=== PATIENT | male | born 1950 | race Two or more races ===

== ENCOUNTER 2020-07-15 21:14 | Inpatient (IN) | payer MEDICAID, OTHER ==
[~2020-07-15] VITALS: Ht 167.6 cm; Wt 79.5 kg
[2020-07-15] MEDS ORDERED: DOXYCYCLINE 100MG TABLET ONE (21:59)
[2020-07-15] MEDS ORDERED: DOXYCYCLINE 100MG TABLET PO ONE (22:00)
[2020-07-15] MEDS ORDERED: CEFTRIAXONE PMX 1GM/50ML 50 ML IVPB ONE (22:00)
[2020-07-15] MEDS ORDERED: DEXAMETHASONE 4 MG/ML, 1ML IVPush ONE (22:00)
[2020-07-15 22:52] LABS: BASOPHILS % (AUTO) 0 % (0-1); EOSINOPHILS % (AUTO) 0 % (1-7); LYMPHOCYTES % (AUTO) 3 % (22-44); MEAN CORPUSCULAR HEMOGLOBIN 30.6 pg (27.5-34.5); MEAN CORPUSCULAR HGB CONC 34.6 g/dL (33.2-36.2); MEAN PLATELET VOLUME 7.6 fL (7.4-10.4); MONOCYTES % (AUTO) 2 % (2-9); NEUTROPHILS % (AUTO) 95 % (42-75); PLATELET COUNT 549 x10^3/uL (130-400); RED BLOOD COUNT 4.12 x10^6/uL (4.38-5.82); RED CELL DISTRIBUTION WIDTH 13.1 % (9.4-14.8)
[2020-07-15 22:55] LABS: MD NO
[2020-07-15 23:03] LABS: ALANINE AMINOTRANSFERASE 38 U/L (12-78); ALBUMIN 2.6 g/dL (3.4-5.0); ANION GAP 11 mmol/L (5-15); CALCIUM 8.2 mg/dL (8.5-10.1); CHLORIDE 103 mmol/L (98-107)
[2020-07-15 23:11] LABS: ALKALINE PHOSPHATASE 49 U/L (45-117); BILIRUBIN,TOTAL 0.5 mg/dL (0.2-1.0); CREATININE 2.21 mg/dL (0.7-1.3); TOTAL PROTEIN 7.6 g/dL (6.4-8.2)
[2020-07-15 23:14] LABS: D-DIMER (DIC) 2.16 ug/mlFEU (0.00-0.52); PROTIME 10.5 Seconds (9.6-11.5)
[2020-07-15 23:15] LABS: C-REACTIVE PROTEIN, QUANT > 19.00 mg/dL (0.02-0.49)
[2020-07-15] MEDS ORDERED: SODIUM CHLORIDE 0.9% 1,000 ML IV ONE (23:30)
[2020-07-15] MEDS ORDERED: GEMF600T8 PO (23:30)
[2020-07-15] MEDS ORDERED: TAMS-11 PO (23:33)
[2020-07-15] MEDS ORDERED: MONT4GRA2 PO (23:33)
[2020-07-15] MEDS ORDERED: LISI-170 PO (23:33)
[2020-07-15] MEDS ORDERED: HYDR12.517 PO (23:33)
[2020-07-15] MEDS ORDERED: OMEP-110 PO (23:33)
[2020-07-15] MEDS ORDERED: LEVA15HF4 INH (23:33)
[2020-07-15] MEDS ORDERED: METF500T17 PO (23:33)
[2020-07-15] MEDS ORDERED: POLY17PO5 PO (23:33)
[2020-07-16] MEDS ORDERED: DOCUSATE 100 MG CAPSULE PO PRN (00:30)
[2020-07-16] MEDS: ENOXAPARIN 30 MG/0.3 ML SQ SCH ×3 (00:30→23:58)
[2020-07-16] MEDS ORDERED: ONDANSETRON ODT 4 MG PO PRN (00:30)
[2020-07-16] MEDS ORDERED: BISACODYL 10 MG SUPP PR PRN (00:30)
[2020-07-16] MEDS ORDERED: PROMETHAZINE 25 MG/ML, 1ML IM PRN (00:30)
[2020-07-16] MEDS ORDERED: morphine SULFATE 10 MG/ML, 1ML IVPush PRN (00:30)
[2020-07-16] MEDS ORDERED: ONDANSETRON 2MG/ML, 2ML IVPush PRN (00:30)
[2020-07-16] MEDS ORDERED: ENOXAPARIN 40 MG/0.4 ML ONE ×2 (00:43→23:48)
[2020-07-16] MEDS ORDERED: ALBUTEROL HFA 90 MCG/SPRAY INH PRN ×2 (01:00→02:30)
--- NOTE | 2020-07-16 01:54 | NUR ---
REPORT GIVEN TO ALIS ROONEY.
[2020-07-16] MEDS: SODIUM CHLORIDE 0.9% 1,000 ML IV SCH ×2 (03:04→09:30)
[2020-07-16 03:22] LABS: MICROSCOPIC INDICATED
[2020-07-16 03:24] LABS: CHLORIDE,URINE RANDOM 16 mmol/L; POTASSIUM,URINE RANDOM 21 mmol/L; SODIUM,URINE RANDOM 22 mmol/L
--- NOTE | 2020-07-16 03:47 | NUR ---
Pt b/p noted to be 86/49. Fluids opened up wide. Dr Mcclain notified. Verbal order to give 500ml bolus. Will con't to monitor patient and recheck b/p in 15 mins
--- NOTE | 2020-07-16 03:49 | NUR ---
Recheck of b/p while bolus is going is
--- NOTE | 2020-07-16 04:43 | NUR ---
Patient resting comfortably at this time. Offers no complaints. VSS, call light within reach.
[2020-07-16 05:17] LABS: BASOPHILS % (AUTO) 0 % (0-1); EOSINOPHILS % (AUTO) 0 % (1-7); LYMPHOCYTES % (AUTO) 4 % (22-44); MEAN CORPUSCULAR HEMOGLOBIN 30.8 pg (27.5-34.5); MEAN CORPUSCULAR HGB CONC 34.8 g/dL (33.2-36.2); MEAN PLATELET VOLUME 7.5 fL (7.4-10.4); MONOCYTES % (AUTO) 4 % (2-9); NEUTROPHILS % (AUTO) 92 % (42-75); PLATELET COUNT 539 x10^3/uL (130-400); RED BLOOD COUNT 3.96 x10^6/uL (4.38-5.82); RED CELL DISTRIBUTION WIDTH 12.9 % (9.4-14.8)
[2020-07-16 05:21] LABS: MD NO
[2020-07-16 05:31] LABS: ALBUMIN 2.4 g/dL (3.4-5.0); ANION GAP 11 mmol/L (5-15); CALCIUM 7.6 mg/dL (8.5-10.1); CHLORIDE 109 mmol/L (98-107)
[2020-07-16 05:40] LABS: ALANINE AMINOTRANSFERASE 32 U/L (12-78); ALKALINE PHOSPHATASE 45 U/L (45-117); BILIRUBIN,TOTAL 0.4 mg/dL (0.2-1.0); CHOL/HDL RATIO 5.3; CHOLESTEROL, TOTAL 171 mg/dL (140-239); CREATININE 1.72 mg/dL (0.7-1.3); HDL CHOL % 19 % (26-37); HDL CHOLESTEROL (DIRECT) 32 mg/dL (40-60); LDL CHOLESTEROL,CALCULATED 80 mg/dL (54-169); LDL/HDL RATIO 2.5 (0.5-3.0); TOTAL PROTEIN 6.9 g/dL (6.4-8.2); TRIGLYCERIDES 293 mg/dL (50-200); VLDL CHOLESTEROL 59 mg/dL (0-25)
--- NOTE | 2020-07-16 06:56 | NUR ---
PT REPORT FROM ALIS BAE. PT CARE TO BE ASSUMED. TWO OFFICERS SITTING OUTSIDE PT ROOM
[2020-07-16] MEDS ORDERED: REMDESIVIR 100 MG in SODIUM CHLORIDE 0.9% 250 ML IVPB SCH (07:00)
[2020-07-16] MEDS ORDERED: REMDESIVIR 200 MG in SODIUM CHLORIDE 0.9% 250 ML IVPB ONE (07:00)
--- NOTE | 2020-07-16 07:10 | NUR ---
REMDESIVIR OBTAINED FROM PHARMACY
--- NOTE | 2020-07-16 07:25 | NUR ---
DIET TRAY ORDERED: NO CONCENTRATED SWEETS PER WRITTEN ORDER FROM DR DUQUE.
--- NOTE | 2020-07-16 07:37 | NUR ---
PT DOZING; EASILY AWAKENED. O2 SAT 70%; NC ON PT'S FOREHEAD; NC REPOSITIONED. 02 SAT INCREASED TO 95% ON 15L. PT ABLE TO SPEAK IN COMPLETE SENTENCES. NS INFUSED.
--- NOTE | 2020-07-16 07:41 | NUR ---
REMDESIVIR [place]O; INFUSING AT 125ML/HR VIA PUMP; IV SITE (20G LAC) PATENT.
--- NOTE | 2020-07-16 07:48 | NUR ---
PT HANCUFFED AT BOTH WRISTS AND LT ANKLE. +CMS ALL SITES; SKIN WNL.
--- NOTE | 2020-07-16 07:54 | NUR ---
HUMALOG PEN ORDERED FROM PHARMACY
[2020-07-16] MEDS ORDERED: TAMSULOSIN 0.4 MG CAP.ER.24H ONE (08:19)
[2020-07-16] MEDS ORDERED: THIAMINE 100MG TABLET ONE (08:19)
[2020-07-16] MEDS ORDERED: CHOLECALCIFEROL 5,000u TAB ONE (08:19)
[2020-07-16] MEDS ORDERED: DEXAMETHASONE 4 MG/ML, 1ML ONE (08:19)
[2020-07-16] MEDS ORDERED: ASCORBIC ACID 500 MG TABLET ONE (08:19)
[2020-07-16] MEDS ORDERED: ZINC SULFATE 220 MG CAPSULE ONE (08:20)
[2020-07-16] MEDS: INSULIN LISPRO 100 UNITS/ML, PEN SQ-INSULIN SCH ×4 (08:34→21:25)
--- NOTE | 2020-07-16 08:36 | NUR ---
HUMALOG GIVEN PER EMAR. REMDESIVIR INFUSING AT 125ML/HR VIA PUMP; IV SITE PATENT. PT RESTING QUIETLY ON GURNEY; AWAITING BREAKFAST TRAY. CARDIAC MONITORING CONTINUING: SINUS DACIA. OFFICERS AT ROOM.
--- NOTE | 2020-07-16 08:49 | NUR ---
CALLED DIETARY RE: BREAKFAST TRAY. TRAY TO BE DELIVERED.
[2020-07-16] MEDS: AZITHROMYCIN 500 MG in SODIUM CHLORIDE 0.9% 250 ML IV SCH (09:36)
[2020-07-16] MEDS: DEXAMETHASONE 4 MG/ML, 1ML IVPush SCH (09:38)
[2020-07-16] MEDS: TAMSULOSIN 0.4 MG CAP.ER.24H PO SCH (09:40)
[2020-07-16] MEDS: ASCORBIC ACID 500 MG TABLET PO SCH ×3 (09:40→20:17)
[2020-07-16] MEDS: THIAMINE 100MG TABLET PO SCH (09:40)
[2020-07-16] MEDS: ZINC SULFATE 220 MG CAPSULE PO SCH (09:40)
[2020-07-16] MEDS: CHOLECALCIFEROL 1,000 UNIT TABLET PO SCH (09:43)
--- NOTE | 2020-07-16 09:45 | NUR ---
PT MEDICATED PER EMAR. NS AND ZITHROMAX HUNG. REMDESIVIR INFUSED.
--- NOTE | 2020-07-16 09:55 | NUR ---
BP 86. NS RATE INCREASED TO W-O. AKBAR COLLECTION BAG DRAINED OF 1500ML CLEAR YELLOW URINE. Addendum: 07/16/20 at 1001 by LORETTA CORRECTION:
--- NOTE | 2020-07-16 10:05 | NUR ---
HIGH-FLOW RESP PUMP HIGH TEMP ALARM GOING OFF. CALLED RESP DEPT, NOTIFIED
--- NOTE | 2020-07-16 10:08 | NUR ---
RESP AT BS
--- NOTE | 2020-07-16 10:12 | NUR ---
PT REPORT TO ALIS CHIRINOS. BP AND NS INFUSION DISCUSSED. PT CARE TRANSFERRED.
--- NOTE | 2020-07-16 10:16 | NUR ---
HOSPITAL BED ORDERED FOR PT
--- NOTE | 2020-07-16 10:45 | NUR ---
Mildly hypotensive. O2 sats down to 86%. Adjusted optiflow. O2 sats now at 93%. Repositioning for comfort. Zithromax complete. NS at 125 running. A&Ox4. No other needs.
--- NOTE | 2020-07-16 11:45 | NUR ---
Patient placed on hospital bed. RN requested that guards place cuffs on in a manner that would prevent pressure ulcers (patient is currently cuffed at the ankles, wrists and has a chain around his waist). They requested permission from their electrical plumbing supervisor and they were denied.
--- NOTE | 2020-07-16 12:12 | NUR ---
Patient moved to room 36.
--- NOTE | 2020-07-16 12:28 | NUR ---
Provided with lunch.
--- NOTE | 2020-07-16 13:06 | NUR ---
Pulse ox = 92-93% on optiflow when awake. Decreases to mid 80s when sleeping. He appears to be mouth breathing. Patient repositioned. No improvement. Dr. Rich notified. Insturcted to call RT for BiPAP. She will order ABG. Left voicemail for RT.
--- NOTE | 2020-07-16 13:51 | NUR ---
Called RT. Fowler is one the way to start BiPAP.
--- NOTE | 2020-07-16 14:29 | NUR ---
Patient resting in gurney on BiPAP. Pulse ox remains at 91%.
--- NOTE | 2020-07-16 15:50 | NUR ---
FSBS = 296. Catheter and insertion site cleansed with theraworks wipe per policy.
--- NOTE | 2020-07-16 16:27 | NUR ---
CALLED DR NULL. PROVIDER WANTS INSULIN GIVEN, SLIDING SCALE. PROVDER AWARE OF BLOOD SUGAR.
--- NOTE | 2020-07-16 18:05 | NUR ---
Note gavin in EDM - 07/16/20 at 1806 by LHAFEN washcloths placed under cuffs for comfort. Vs stable. RT has been in to see patient. Bipap on. Officers at door. die engraver on. nsr noted. will continue to monitor while primary rn is on break.
--- NOTE | 2020-07-16 18:06 | NUR ---
washcloths placed under cuffs for comfort. Vs stable. RT has been in to see patient. Bipap on. Officers at door. property assessment monitor on. nsr noted. call light in place will continue to monitor.
--- NOTE | 2020-07-16 18:28 | NUR ---
DR DUQUE CALLED. AWARE OF VS AND FSBS.
--- NOTE | 2020-07-16 19:25 | NUR ---
REPORT GIVEN TO ALIS FALCON AND ALIS KLINE
[2020-07-16 20:01] LABS: TROPONIN I < 0.015 ng/mL (0.000-0.045)
[2020-07-16] MEDS ORDERED: CEFTRIAXONE PMX 1GM/50ML 0 ML ONE (20:06)
[2020-07-16] MEDS ORDERED: CEFTRIAXONE PMX 2GM/50ML 50 ML ONE (20:07)
[2020-07-16] MEDS: MELATONIN 5 MG TABLET PO SCH (20:16)
[2020-07-16] MEDS: CEFTRIAXONE PMX 2GM/50ML 50 ML IVPB SCH (20:16)
[2020-07-16] MEDS ORDERED: INSULIN GLARGINE 100 UNITS/ML, PEN SQ-INSULIN SCH (21:00)
[2020-07-16] MEDS ORDERED: SODIUM CHLORIDE 0.9% 1,000 ML IV SCH (22:00)
--- NOTE | 2020-07-16 22:14 | NUR ---
Pt resting and able to tolerate sips of of water off of bipap. Resoirations have improved since last assessment. Pt resting comfortably with no signs of distress
--- NOTE | 2020-07-16 23:45 | NUR ---
Pt urinary output is adequate. Discussed with Dr. Terrell Pt BP. Order to increase fluids attained.
[2020-07-16] MEDS ORDERED: ENOXAPARIN 100 MG/ML ONE (23:51)
--- NOTE | 2020-07-17 01:00 | NUR ---
Pt urinary output is still adequate. Pt systolic pressure has dropped blow 90. Contacted Dr. Terrell and Order for 1 liter NS bolus attained.
--- NOTE | 2020-07-17 02:00 | NUR ---
Pt BP has increased with a systolic of 110. Pt resting comfortably with no signs of distress.
[2020-07-17] MEDS ORDERED: SODIUM CHLORIDE 0.9% 1,000ML IVBOLUS ONE (02:30)
--- NOTE | 2020-07-17 03:20 | NUR ---
Pt resting comfortably. VS stable. no signs of distress
--- NOTE | 2020-07-17 04:47 | NUR ---
Pt resting in bed. VS WNL. Pt denies any pain. No signs of distress
[2020-07-17 05:33] LABS: CHLORIDE 116 mmol/L (98-107)
--- NOTE | 2020-07-17 05:43 | NUR ---
Pt resting in bed. Pt denies pain. No signs of distress. V/S WNL.
[2020-07-17 05:44] LABS: ALANINE AMINOTRANSFERASE 29 U/L (12-78); ALBUMIN 2.2 g/dL (3.4-5.0); ALKALINE PHOSPHATASE 58 U/L (45-117); ANION GAP 5 mmol/L (5-15); BILIRUBIN,TOTAL 0.4 mg/dL (0.2-1.0); CALCIUM 7.7 mg/dL (8.5-10.1); CREATININE 1.16 mg/dL (0.7-1.3); TOTAL PROTEIN 6.4 g/dL (6.4-8.2)
--- NOTE | 2020-07-17 07:42 | NUR ---
PT RESTING ON HOSPITAL BED AT THIS TIME, GUARDS IN HALLWAY. PT ON BIPAP SATING 92% AT THIS TIME RR 23, NAD. PT GIVES THUMBS UP AT DOOR. MEDICATION REQUEST SENT TO PHARMACY
[2020-07-17] MEDS ORDERED: THIAMINE 100MG TABLET ONE (07:50)
[2020-07-17] MEDS ORDERED: TAMSULOSIN 0.4 MG CAP.ER.24H ONE (07:50)
[2020-07-17] MEDS ORDERED: DEXAMETHASONE 4 MG/ML, 1ML ONE (07:50)
[2020-07-17] MEDS ORDERED: CHOLECALCIFEROL 5,000u TAB ONE (07:51)
[2020-07-17] MEDS ORDERED: ENOXAPARIN 60 MG/0.6 ML ONE (07:52)
[2020-07-17] MEDS ORDERED: ASCORBIC ACID 500 MG TABLET ONE (07:52)
[2020-07-17] MEDS ORDERED: ZINC SULFATE 220 MG CAPSULE ONE (07:52)
[2020-07-17] MEDS: ASCORBIC ACID 500 MG TABLET PO SCH ×3 (08:20→20:05)
[2020-07-17] MEDS: INSULIN LISPRO 100 UNITS/ML, PEN SQ-INSULIN SCH ×4 (08:20→20:10)
[2020-07-17] MEDS: AZITHROMYCIN 500 MG in SODIUM CHLORIDE 0.9% 250 ML IV SCH (08:20)
[2020-07-17] MEDS: DEXAMETHASONE 4 MG/ML, 1ML IVPush SCH (08:20)
[2020-07-17] MEDS: TAMSULOSIN 0.4 MG CAP.ER.24H PO SCH (08:20)
[2020-07-17] MEDS: ENOXAPARIN 60 MG/0.6 ML SQ SCH (08:21)
[2020-07-17] MEDS: CHOLECALCIFEROL 1,000 UNIT TABLET PO SCH (08:21)
[2020-07-17] MEDS: ZINC SULFATE 220 MG CAPSULE PO SCH (08:21)
[2020-07-17] MEDS: THIAMINE 100MG TABLET PO SCH (08:22)
--- NOTE | 2020-07-17 09:20 | NUR ---
DISCUSSED WITH AMRIT IN [place], PT NEEDS TO HAVE HANDS FREE FROM SHACKLES WHILE ON BIPAP MASK, D/T RISK OF ASPIRATION IF PT BECOMES NAUSEATED AND VOMITS IN MASK. PT RELEASED FROM SHACKLES PER RN REQUEST. LATE ENTRY D/T PT CARE. RT CALLED IN ATTEMPTS TO PLACE PT ON OPTIFLOW SO PT CAN EAT BREAKFAST, PER RT NO OPTIFLOW AVAILABLE. ATTMEPTS TO FEED PT WITH SHORT BREAK FROM BIPAP UNSUCCESSFUL, PT RAPIDLY DESATES 67% WITH SHORT BREAK, NRB MASK NOT EFFECTIVE. PT RECIEVED A FEW BITES OF OATMEAL, UNABLE COMPLETE BREAKFAST TRAY.
[2020-07-17] MEDS: REMDESIVIR 100 MG in SODIUM CHLORIDE 0.9% 250 ML IVPB SCH (09:26)
[2020-07-17] MEDS ORDERED: FUROSEMIDE 40 MG/4 ML IV ONE (11:00)
[2020-07-17] MEDS ORDERED: REMDESIVIR 100 MG in SODIUM CHLORIDE 0.9% 250 ML IVPB SCH (11:00)
[2020-07-17] MEDS ORDERED: INSULIN LISPRO 100 UNITS/ML, PEN SQ-INSULIN SCH (11:00)
--- NOTE | 2020-07-17 11:11 | NUR ---
DR NULL CALLED TO UPDATE ON PT STATUS, PT BORDERLINE HYPOTENSIVE, LOW 100S SYSTOLIC AT BEST POST IV BOLUS PER NOC RN. TO ALEX LASIX ORDER, ALSO UNABLE TO BREAK SEAL ON BIPAP FOR FOR ENSURE PT DESATS QUICKLY, TO ALEX SCHEDULED HUMULOG
--- NOTE | 2020-07-17 13:01 | NUR ---
PATIENT GIVEN 260ML OF ENSURE WITH OXYMASK AT 12L. DESAT TO 86% WHILE EATING. BIPAP REPLACED. O2 SAT RECOVERED TO 98%.
[2020-07-17 13:12] VITALS: BP 101/53
--- NOTE | 2020-07-17 14:53 | NUR ---
REPORT TO RECIEVING RN
[2020-07-17] MEDS: ACETAMINOPHEN 325 MG TABLET PO PRN ×2 (20:05→20:06)
[2020-07-17] MEDS: OXYcodone IR 5MG TABLET PO PRN (20:06)
[2020-07-17] MEDS: MELATONIN 5 MG TABLET PO SCH (20:06)
[2020-07-17] MEDS: CEFTRIAXONE PMX 2GM/50ML 50 ML IVPB SCH (21:30)
[2020-07-17] MEDS ORDERED: SODIUM CHLORIDE 0.9% 1,000 ML IV SCH ×2 (22:00)
[2020-07-17] MEDS ORDERED: SODIUM CHLORIDE 0.9%, 500ML IVBOLUS ONE ×2 (22:30)
[2020-07-18 04:46] LABS: MEAN PLATELET VOLUME 8.1 fL (7.4-10.4); RED CELL DISTRIBUTION WIDTH 13.4 % (9.4-14.8)
[2020-07-18 04:48] LABS: MEAN CORPUSCULAR HEMOGLOBIN 32.3 pg (27.5-34.5); MEAN CORPUSCULAR HGB CONC 35.6 g/dL (33.2-36.2); PLATELET COUNT 399 x10^3/uL (130-400); RED BLOOD COUNT 3.58 x10^6/uL (4.38-5.82)
[2020-07-18 06:02] LABS: ALBUMIN 2.2 g/dL (3.4-5.0); ANION GAP 5 mmol/L (5-15); CALCIUM 7.8 mg/dL (8.5-10.1); CHLORIDE 116 mmol/L (98-107)
[2020-07-18 06:06] LABS: CREATININE 1.02 mg/dL (0.7-1.3)
[2020-07-18 06:07] LABS: ALANINE AMINOTRANSFERASE 25 U/L (12-78); ALKALINE PHOSPHATASE 82 U/L (45-117); BILIRUBIN,TOTAL 0.5 mg/dL (0.2-1.0); TOTAL PROTEIN 6.2 g/dL (6.4-8.2)
[2020-07-18 06:21] LABS: MD YES
[2020-07-18 06:23] LABS: ANISOCYTOSIS 1+; BAND#(MANUAL) 0.46 x10^3/uL; BANDS%(MANUAL) 3 % (0-7); LYMPHS% (MANUAL) 2 % (22-44); METAMYELOCYTES% (MANUAL) 2 % (0-1); MONOS#(MANUAL) 0.61 x10^3/uL (0.3-2.7); MONOS% (MANUAL) 4 % (2-9); MYELOCYTES# (MANUAL) 0.15 x10^3/uL (0-0); MYELOCYTES% (MANUAL) 1 % (0-0); POLYCHROMASIA 1+; SEG#(MANUAL) 13.38 x10^3/uL (1.8-6.8); SEGS% (MANUAL) 88 % (42-75)
[2020-07-18 06:24] LABS: <PLATELET ESTIMATE> INCREASED; <PLT MORPHOLOGY> NORMAL PLT MORPH
[2020-07-18] MEDS: REMDESIVIR 100 MG in SODIUM CHLORIDE 0.9% 250 ML IVPB SCH (08:21)
[2020-07-18] MEDS: INSULIN LISPRO 100 UNITS/ML, PEN SQ-INSULIN SCH ×4 (08:30→21:35)
[2020-07-18] MEDS: ASCORBIC ACID 500 MG TABLET PO SCH ×3 (08:30→21:30)
[2020-07-18] MEDS: CHOLECALCIFEROL 1,000 UNIT TABLET PO SCH (08:30)
[2020-07-18] MEDS: TAMSULOSIN 0.4 MG CAP.ER.24H PO SCH (08:31)
[2020-07-18] MEDS: THIAMINE 100MG TABLET PO SCH (08:31)
[2020-07-18] MEDS: ZINC SULFATE 220 MG CAPSULE PO SCH (08:31)
[2020-07-18] MEDS: DEXAMETHASONE 4 MG/ML, 1ML IVPush SCH (08:31)
[2020-07-18] MEDS: ENOXAPARIN 60 MG/0.6 ML SQ SCH (08:32)
[2020-07-18] MEDS: AZITHROMYCIN 500 MG in SODIUM CHLORIDE 0.9% 250 ML IV SCH (11:04)
[2020-07-18] MEDS ORDERED: FUROSEMIDE 40 MG/4 ML IV ONE (18:00)
[2020-07-18] MEDS: MELATONIN 5 MG TABLET PO SCH (21:30)
[2020-07-18] MEDS: CEFTRIAXONE PMX 2GM/50ML 50 ML IVPB SCH (21:30)
[2020-07-19 05:29] LABS: BASOPHILS % (AUTO) 0 % (0-1); EOSINOPHILS % (AUTO) 0 % (1-7); LYMPHOCYTES % (AUTO) 4 % (22-44); MEAN CORPUSCULAR HEMOGLOBIN 30.7 pg (27.5-34.5); MEAN PLATELET VOLUME 6.9 fL (7.4-10.4); MONOCYTES % (AUTO) 3 % (2-9); NEUTROPHILS % (AUTO) 93 % (42-75); PLATELET COUNT 255 x10^3/uL (130-400); RED BLOOD COUNT 3.67 x10^6/uL (4.38-5.82); RED CELL DISTRIBUTION WIDTH 13.4 % (9.4-14.8)
[2020-07-19 05:32] LABS: ALANINE AMINOTRANSFERASE 21 U/L (12-78); ALBUMIN 2.1 g/dL (3.4-5.0); ANION GAP 7 mmol/L (5-15); CALCIUM 7.8 mg/dL (8.5-10.1); CHLORIDE 111 mmol/L (98-107); CREATININE 0.86 mg/dL (0.7-1.3)
[2020-07-19 05:34] LABS: ALKALINE PHOSPHATASE 81 U/L (45-117); BILIRUBIN,TOTAL 0.5 mg/dL (0.2-1.0); TOTAL PROTEIN 5.9 g/dL (6.4-8.2)
[2020-07-19 05:43] LABS: MD NO
[2020-07-19] MEDS: REMDESIVIR 100 MG in SODIUM CHLORIDE 0.9% 250 ML IVPB SCH (07:50)
[2020-07-19] MEDS: INSULIN LISPRO 100 UNITS/ML, PEN SQ-INSULIN SCH ×4 (07:50→21:13)
[2020-07-19] MEDS: POTASSIUM CHLORIDE 20 MEQ TAB.ER.PRT PO SCH (07:55)
[2020-07-19] MEDS: TAMSULOSIN 0.4 MG CAP.ER.24H PO SCH (07:56)
[2020-07-19] MEDS: THIAMINE 100MG TABLET PO SCH (07:56)
[2020-07-19] MEDS: CHOLECALCIFEROL 1,000 UNIT TABLET PO SCH (07:56)
[2020-07-19] MEDS: FUROSEMIDE 40 MG/4 ML IV SCH (07:56)
[2020-07-19] MEDS: ASCORBIC ACID 500 MG TABLET PO SCH ×3 (07:56→21:12)
[2020-07-19] MEDS: DEXAMETHASONE 4 MG/ML, 1ML IVPush SCH (07:56)
[2020-07-19] MEDS: ZINC SULFATE 220 MG CAPSULE PO SCH (07:56)
[2020-07-19] MEDS: ENOXAPARIN 60 MG/0.6 ML SQ SCH (07:56)
[2020-07-19] MEDS: AZITHROMYCIN 500 MG in SODIUM CHLORIDE 0.9% 250 ML IV SCH (10:41)
[2020-07-19] MEDS: CEFTRIAXONE PMX 2GM/50ML 50 ML IVPB SCH (21:11)
[2020-07-19] MEDS: MELATONIN 5 MG TABLET PO SCH (21:12)
[2020-07-20 04:56] LABS: ALANINE AMINOTRANSFERASE 19 U/L (12-78); ANION GAP 7 mmol/L (5-15); CALCIUM 7.6 mg/dL (8.5-10.1); CHLORIDE 108 mmol/L (98-107); CREATININE 0.86 mg/dL (0.7-1.3)
[2020-07-20 04:58] LABS: ALKALINE PHOSPHATASE 90 U/L (45-117); BILIRUBIN,TOTAL 0.5 mg/dL (0.2-1.0); TOTAL PROTEIN 5.9 g/dL (6.4-8.2)
[2020-07-20] MEDS: INSULIN LISPRO 100 UNITS/ML, PEN SQ-INSULIN SCH ×4 (06:15→20:36)
[2020-07-20] MEDS ORDERED: DEXAMETHASONE 4 MG/ML, 5ML ONE (08:15)
[2020-07-20] MEDS: REMDESIVIR 100 MG in SODIUM CHLORIDE 0.9% 250 ML IVPB SCH (08:26)
[2020-07-20] MEDS: ENOXAPARIN 60 MG/0.6 ML SQ SCH (08:26)
[2020-07-20] MEDS: CHOLECALCIFEROL 1,000 UNIT TABLET PO SCH (08:27)
[2020-07-20] MEDS: DEXAMETHASONE 4 MG/ML, 1ML IVPush SCH (08:27)
[2020-07-20] MEDS: FUROSEMIDE 40 MG/4 ML IV SCH ×2 (08:27→20:33)
[2020-07-20] MEDS: ZINC SULFATE 220 MG CAPSULE PO SCH (08:28)
[2020-07-20] MEDS: THIAMINE 100MG TABLET PO SCH (08:28)
[2020-07-20] MEDS: ASCORBIC ACID 500 MG TABLET PO SCH ×3 (08:28→20:33)
[2020-07-20] MEDS: POTASSIUM CHLORIDE 20 MEQ TAB.ER.PRT PO SCH (08:28)
[2020-07-20] MEDS: TAMSULOSIN 0.4 MG CAP.ER.24H PO SCH (08:28)
[2020-07-20] MEDS ORDERED: AZITHROMYCIN 500 MG in SODIUM CHLORIDE 0.9% 250 ML IV SCH (11:00)
[2020-07-20] MEDS ORDERED: SODIUM CHLORIDE 0.9% 500 ML IV SCH (12:00)
[2020-07-20] MEDS: MIDODRINE 5 MG TABLET PO SCH ×2 (12:16→15:50)
[2020-07-20] MEDS ORDERED: MIDODRINE 5 MG TABLET PO PRN ×2 (13:00→18:30)
[2020-07-20] MEDS: MELATONIN 5 MG TABLET PO SCH (20:33)
[2020-07-20] MEDS: CEFTRIAXONE PMX 2GM/50ML 50 ML IVPB SCH (20:33)
[2020-07-20] MEDS: INSULIN GLARGINE 100 UNITS/ML, PEN SQ-INSULIN SCH ×2 (20:37→20:45)
[2020-07-21] MEDS ORDERED: PROPOFOL 10 MG/ML, 100ML IV ONE
[2020-07-21] MEDS ORDERED: ROCURONIUM 10 MG/ML,10ML ONE
[2020-07-21] MEDS ORDERED: PROPOFOL 10 MG/ML, 20ML ONE
[2020-07-21 04:57] LABS: BASOPHILS % (AUTO) 0 % (0-1); EOSINOPHILS % (AUTO) 0 % (1-7); LYMPHOCYTES % (AUTO) 3 % (22-44); MEAN CORPUSCULAR HEMOGLOBIN 30.2 pg (27.5-34.5); MEAN CORPUSCULAR HGB CONC 33.9 g/dL (33.2-36.2); MEAN PLATELET VOLUME 7.7 fL (7.4-10.4); MONOCYTES % (AUTO) 4 % (2-9); NEUTROPHILS % (AUTO) 94 % (42-75); PLATELET COUNT 251 x10^3/uL (130-400); RED CELL DISTRIBUTION WIDTH 13.3 % (9.4-14.8)
[2020-07-21 05:10] LABS: ANION GAP 6 mmol/L (5-15); CALCIUM 7.8 mg/dL (8.5-10.1); CHLORIDE 106 mmol/L (98-107)
[2020-07-21 05:17] LABS: ALANINE AMINOTRANSFERASE 20 U/L (12-78); ALKALINE PHOSPHATASE 90 U/L (45-117); BILIRUBIN,TOTAL 0.4 mg/dL (0.2-1.0); CREATININE 0.76 mg/dL (0.7-1.3); TOTAL PROTEIN 5.9 g/dL (6.4-8.2)
[2020-07-21 06:14] LABS: MD SCAN
[2020-07-21] MEDS: INSULIN LISPRO 100 UNITS/ML, PEN SQ-INSULIN SCH ×4 (06:37→20:57)
[2020-07-21] MEDS: POTASSIUM CHLORIDE 20 MEQ TAB.ER.PRT PO SCH (08:00)
[2020-07-21] MEDS: ASCORBIC ACID 500 MG TABLET PO SCH ×3 (09:00→22:41)
[2020-07-21] MEDS: DEXAMETHASONE 4 MG/ML, 1ML IVPush SCH (09:00)
[2020-07-21] MEDS: CHOLECALCIFEROL 1,000 UNIT TABLET PO SCH (09:00)
[2020-07-21] MEDS: THIAMINE 100MG TABLET PO SCH (09:00)
[2020-07-21] MEDS: ZINC SULFATE 220 MG CAPSULE PO SCH (09:00)
[2020-07-21] MEDS: TAMSULOSIN 0.4 MG CAP.ER.24H PO SCH (09:00)
[2020-07-21] MEDS ORDERED: DEXAMETHASONE 4 MG/ML, 5ML ONE ×2 (09:45→10:12)
[2020-07-21] MEDS: FUROSEMIDE 40 MG/4 ML IV SCH ×2 (09:50→22:41)
[2020-07-21] MEDS: ENOXAPARIN 60 MG/0.6 ML SQ SCH (09:50)
[2020-07-21] MEDS ORDERED: SODIUM CHLORIDE 0.9% 500 ML IV SCH (12:00)
[2020-07-21] MEDS: PROPOFOL 100 ML IV PRN ×4 (12:30→23:51)
[2020-07-21] MEDS ORDERED: PHARMACY MAY ADJ FOR RENAL FX MC SCH (12:30)
[2020-07-21] MEDS ORDERED: ROCURONIUM 10MG/ML,5ML IVPush ONE (12:30)
[2020-07-21] MEDS ORDERED: PROPOFOL 10 MG/ML, 20ML IVPush ONE (12:30)
[2020-07-21] MEDS ORDERED: LIDOCAINE-MPF 1%, 2ML ENDO PRN (12:30)
[2020-07-21] MEDS ORDERED: ALBUMIN HUMAN 25% 100 ML ONE (13:20)
[2020-07-21] MEDS ORDERED: ALBUMIN HUMAN 25% 100 ML IV ONE (13:30)
[2020-07-21] MEDS: INSULIN GLARGINE 100 UNITS/ML, PEN SQ-INSULIN SCH (20:57)
[2020-07-21] MEDS: CEFTRIAXONE PMX 2GM/50ML 50 ML IVPB SCH (22:42)
[2020-07-21] MEDS: MELATONIN 5 MG TABLET PO SCH (22:42)
[2020-07-22] MEDS: NOREPINEPHRINE 8 MG in SODIUM CHLORIDE 0.9% 242 ML IV PRN (01:56)
[2020-07-22] MEDS: PROPOFOL 100 ML IV PRN ×4 (02:40→14:53)
[2020-07-22] MEDS: INSULIN LISPRO 100 UNITS/ML, PEN SQ-INSULIN SCH ×4 (02:56→21:48)
[2020-07-22 04:37] LABS: BASOPHILS % (AUTO) 0 % (0-1); EOSINOPHILS % (AUTO) 0 % (1-7); LYMPHOCYTES % (AUTO) 1 % (22-44); MEAN CORPUSCULAR HEMOGLOBIN 30.8 pg (27.5-34.5); MEAN CORPUSCULAR HGB CONC 33.8 g/dL (33.2-36.2); MEAN PLATELET VOLUME 7.7 fL (7.4-10.4); MONOCYTES % (AUTO) 4 % (2-9); NEUTROPHILS % (AUTO) 95 % (42-75); PLATELET COUNT 268 x10^3/uL (130-400); RED BLOOD COUNT 3.93 x10^6/uL (4.38-5.82); RED CELL DISTRIBUTION WIDTH 13.5 % (9.4-14.8)
[2020-07-22 04:40] LABS: MD NO
[2020-07-22 04:49] LABS: ALANINE AMINOTRANSFERASE 22 U/L (12-78); ALBUMIN 2.8 g/dL (3.4-5.0); ANION GAP 7 mmol/L (5-15); CALCIUM 8.4 mg/dL (8.5-10.1); CHLORIDE 104 mmol/L (98-107); CREATININE 1.15 mg/dL (0.7-1.3)
[2020-07-22 04:52] LABS: ALKALINE PHOSPHATASE 86 U/L (45-117); BILIRUBIN,TOTAL 0.5 mg/dL (0.2-1.0); TOTAL PROTEIN 6.6 g/dL (6.4-8.2)
[2020-07-22] MEDS ORDERED: POTASSIUM CHLORIDE 10% 20 MEQ/15 ML UDC PO SCH (07:16)
[2020-07-22] MEDS: INSULIN GLARGINE 100 UNITS/ML, PEN SQ-INSULIN SCH (08:11)
[2020-07-22] MEDS: POTASSIUM CHLORIDE 10% 20 MEQ/15 ML UDC PO SCH (08:12)
[2020-07-22] MEDS: ASCORBIC ACID 500 MG TABLET PO SCH ×3 (08:12→21:33)
[2020-07-22] MEDS: DEXAMETHASONE 4 MG/ML, 1ML IVPush SCH (08:12)
[2020-07-22] MEDS: ZINC SULFATE 220 MG CAPSULE PO SCH (08:13)
[2020-07-22] MEDS: CHOLECALCIFEROL 1,000 UNIT TABLET PO SCH (08:13)
[2020-07-22] MEDS: THIAMINE 100MG TABLET PO SCH (08:13)
[2020-07-22] MEDS: FUROSEMIDE 40 MG/4 ML IV SCH (08:13)
[2020-07-22] MEDS: ENOXAPARIN 60 MG/0.6 ML SQ SCH (08:15)
--- NOTE | 2020-07-22 09:57 | NUR ---
Promote goal on propofol:55 ml/hr, 65 ml/hr off propofol Addendum: 07/22/20 at [address] Amended: Links added.
[2020-07-22] MEDS: MIDAZOLAM HCL 50 MG in SODIUM CHLORIDE 0.9% 40 ML IV PRN (11:12)
[2020-07-22] MEDS: FENTANYL PF 1,000 MCG in SODIUM CHLORIDE 0.9% 80 ML IV PRN (16:15)
[2020-07-22] MEDS ORDERED: INSULIN GLARGINE 100 UNITS/ML, PEN SQ-INSULIN SCH (21:00)
[2020-07-22] MEDS: MELATONIN 5 MG TABLET PO SCH (21:34)
[2020-07-22] MEDS: CEFTRIAXONE PMX 2GM/50ML 50 ML IVPB SCH (21:34)
[2020-07-23] MEDS: FENTANYL PF 1,000 MCG in SODIUM CHLORIDE 0.9% 80 ML IV PRN ×2 (01:45→10:34)
[2020-07-23] MEDS: MIDAZOLAM HCL 50 MG in SODIUM CHLORIDE 0.9% 40 ML IV PRN ×2 (03:25→17:36)
[2020-07-23] MEDS: INSULIN LISPRO 100 UNITS/ML, PEN SQ-INSULIN SCH ×4 (03:31→20:24)
[2020-07-23 03:42] LABS: BASOPHILS % (AUTO) 0 % (0-1); EOSINOPHILS % (AUTO) 0 % (1-7); LYMPHOCYTES % (AUTO) 2 % (22-44); MEAN CORPUSCULAR HEMOGLOBIN 30.5 pg (27.5-34.5); MEAN CORPUSCULAR HGB CONC 33.1 g/dL (33.2-36.2); MEAN PLATELET VOLUME 7.8 fL (7.4-10.4); MONOCYTES % (AUTO) 3 % (2-9); NEUTROPHILS % (AUTO) 95 % (42-75); PLATELET COUNT 251 x10^3/uL (130-400); RED CELL DISTRIBUTION WIDTH 13.4 % (9.4-14.8)
[2020-07-23 03:45] LABS: MD NO
[2020-07-23 03:56] LABS: ALBUMIN 2.4 g/dL (3.4-5.0); ANION GAP 4 mmol/L (5-15); CALCIUM 7.9 mg/dL (8.5-10.1); CHLORIDE 104 mmol/L (98-107)
[2020-07-23 03:59] LABS: ALANINE AMINOTRANSFERASE 19 U/L (12-78); ALKALINE PHOSPHATASE 66 U/L (45-117); BILIRUBIN,TOTAL 0.4 mg/dL (0.2-1.0); CREATININE 0.91 mg/dL (0.7-1.3); TOTAL PROTEIN 5.8 g/dL (6.4-8.2)
[2020-07-23] MEDS: ENOXAPARIN 60 MG/0.6 ML SQ SCH (08:29)
[2020-07-23] MEDS: POTASSIUM CHLORIDE 10% 20 MEQ/15 ML UDC PO SCH (08:29)
[2020-07-23] MEDS: ZINC SULFATE 220 MG CAPSULE PO SCH (08:29)
[2020-07-23] MEDS: THIAMINE 100MG TABLET PO SCH (08:30)
[2020-07-23] MEDS: INSULIN GLARGINE 100 UNITS/ML, PEN SQ-INSULIN SCH ×2 (08:33→20:25)
[2020-07-23] MEDS: CHOLECALCIFEROL 1,000 UNIT TABLET PO SCH (08:35)
[2020-07-23] MEDS: ASCORBIC ACID 500 MG TABLET PO SCH ×3 (08:45→20:45)
[2020-07-23] MEDS: MELATONIN 5 MG TABLET PO SCH (20:45)
[2020-07-24] MEDS: FENTANYL PF 1,000 MCG in SODIUM CHLORIDE 0.9% 80 ML IV PRN ×3 (00:48→14:28)
[2020-07-24] MEDS: INSULIN LISPRO 100 UNITS/ML, PEN SQ-INSULIN SCH ×4 (03:02→20:52)
[2020-07-24 04:30] LABS: ALANINE AMINOTRANSFERASE 18 U/L (12-78); ALBUMIN 2.1 g/dL (3.4-5.0); ANION GAP 3 mmol/L (5-15); CALCIUM 7.9 mg/dL (8.5-10.1); CHLORIDE 108 mmol/L (98-107); CREATININE 0.83 mg/dL (0.7-1.3); TRIGLYCERIDES 121 mg/dL (50-200)
[2020-07-24 04:32] LABS: ALKALINE PHOSPHATASE 60 U/L (45-117); BILIRUBIN,TOTAL 0.4 mg/dL (0.2-1.0); TOTAL PROTEIN 5.4 g/dL (6.4-8.2)
[2020-07-24 04:36] LABS: BASOPHILS % (AUTO) 0 % (0-1); EOSINOPHILS % (AUTO) 0 % (1-7); LYMPHOCYTES % (AUTO) 2 % (22-44); MEAN CORPUSCULAR HEMOGLOBIN 30.6 pg (27.5-34.5); MEAN PLATELET VOLUME 8.2 fL (7.4-10.4); MONOCYTES % (AUTO) 3 % (2-9); NEUTROPHILS % (AUTO) 95 % (42-75); PLATELET COUNT 202 x10^3/uL (130-400); RED BLOOD COUNT 3.43 x10^6/uL (4.38-5.82); RED CELL DISTRIBUTION WIDTH 13.3 % (9.4-14.8)
[2020-07-24 04:42] LABS: MD NO
[2020-07-24] MEDS: ZINC SULFATE 220 MG CAPSULE PO SCH (08:38)
[2020-07-24] MEDS: THIAMINE 100MG TABLET PO SCH (08:38)
[2020-07-24] MEDS: ENOXAPARIN 60 MG/0.6 ML SQ SCH (08:38)
[2020-07-24] MEDS: CHOLECALCIFEROL 1,000 UNIT TABLET PO SCH (08:38)
[2020-07-24] MEDS: FUROSEMIDE 40 MG/4 ML IV SCH (08:39)
[2020-07-24] MEDS: INSULIN GLARGINE 100 UNITS/ML, PEN SQ-INSULIN SCH ×2 (08:40→20:52)
[2020-07-24] MEDS: ASCORBIC ACID 500 MG TABLET PO SCH ×3 (08:41→20:51)
[2020-07-24] MEDS: MIDAZOLAM HCL 50 MG in SODIUM CHLORIDE 0.9% 40 ML IV PRN (11:28)
--- NOTE | 2020-07-24 11:29 | NUR ---
07/24: Tube feeding: Vital 1.2 goal: 65 ml/hr Addendum: 07/24/20 at [address] Amended: Links added.
[2020-07-24] MEDS: POLYETHYLENE GLYCOL 17 GM PACKET PO PRN (18:16)
[2020-07-24] MEDS: MELATONIN 5 MG TABLET PO SCH (20:51)
[2020-07-25] MEDS: INSULIN LISPRO 100 UNITS/ML, PEN SQ-INSULIN SCH ×4 (03:01→21:24)
[2020-07-25 03:23] LABS: BASOPHILS % (AUTO) 0 % (0-1); EOSINOPHILS % (AUTO) 0 % (1-7); LYMPHOCYTES % (AUTO) 2 % (22-44); MEAN CORPUSCULAR HEMOGLOBIN 30.2 pg (27.5-34.5); MEAN CORPUSCULAR HGB CONC 32.7 g/dL (33.2-36.2); MEAN PLATELET VOLUME 7.6 fL (7.4-10.4); MONOCYTES % (AUTO) 3 % (2-9); NEUTROPHILS % (AUTO) 96 % (42-75); PLATELET COUNT 214 x10^3/uL (130-400); RED BLOOD COUNT 3.39 x10^6/uL (4.38-5.82); RED CELL DISTRIBUTION WIDTH 13.5 % (9.4-14.8)
[2020-07-25 03:24] LABS: MD NO
[2020-07-25 03:30] LABS: ALANINE AMINOTRANSFERASE 30 U/L (12-78); ALBUMIN 1.9 g/dL (3.4-5.0); ANION GAP 3 mmol/L (5-15); CALCIUM 8.3 mg/dL (8.5-10.1); CHLORIDE 106 mmol/L (98-107); CREATININE 0.66 mg/dL (0.7-1.3)
[2020-07-25 03:32] LABS: ALKALINE PHOSPHATASE 100 U/L (45-117); BILIRUBIN,TOTAL 0.4 mg/dL (0.2-1.0); TOTAL PROTEIN 5.6 g/dL (6.4-8.2)
[2020-07-25] MEDS ORDERED: ETOMIDATE 20 MG/10 ML ONE (05:00)
[2020-07-25] MEDS: MIDAZOLAM HCL 50 MG in SODIUM CHLORIDE 0.9% 40 ML IV PRN (05:26)
[2020-07-25] MEDS: FENTANYL PF 1,000 MCG in SODIUM CHLORIDE 0.9% 80 ML IV PRN ×2 (05:27→14:19)
[2020-07-25] MEDS: ZINC SULFATE 220 MG CAPSULE PO SCH (09:00)
[2020-07-25] MEDS ORDERED: ETOMIDATE 20 MG/10 ML IVPush ONE (09:30)
[2020-07-25] MEDS: FUROSEMIDE 40 MG/4 ML IV SCH (09:43)
[2020-07-25] MEDS: ASCORBIC ACID 500 MG TABLET PO SCH ×3 (09:43→21:24)
[2020-07-25] MEDS: CHOLECALCIFEROL 1,000 UNIT TABLET PO SCH (09:44)
[2020-07-25] MEDS: THIAMINE 100MG TABLET PO SCH (09:44)
[2020-07-25] MEDS: ENOXAPARIN 60 MG/0.6 ML SQ SCH (09:44)
[2020-07-25] MEDS: INSULIN GLARGINE 100 UNITS/ML, PEN SQ-INSULIN SCH ×2 (09:46→21:25)
[2020-07-25] MEDS ORDERED: AcetaZOLAMIDE INJ 500 MG IVPush SCH (14:00)
[2020-07-25] MEDS: MELATONIN 5 MG TABLET PO SCH (21:24)
[2020-07-26] MEDS: INSULIN LISPRO 100 UNITS/ML, PEN SQ-INSULIN SCH ×4 (03:23→20:38)
[2020-07-26 03:51] LABS: ALBUMIN 1.9 g/dL (3.4-5.0); ANION GAP 2 mmol/L (5-15); CALCIUM 8.6 mg/dL (8.5-10.1); CHLORIDE 103 mmol/L (98-107)
[2020-07-26 03:54] LABS: ALANINE AMINOTRANSFERASE 125 U/L (12-78); ALKALINE PHOSPHATASE 303 U/L (45-117); BILIRUBIN,TOTAL 0.8 mg/dL (0.2-1.0); TOTAL PROTEIN 6.3 g/dL (6.4-8.2)
[2020-07-26 04:01] LABS: BASOPHILS % (AUTO) 1 % (0-1); EOSINOPHILS % (AUTO) 0 % (1-7); LYMPHOCYTES % (AUTO) 3 % (22-44); MEAN CORPUSCULAR HEMOGLOBIN 29.9 pg (27.5-34.5); MEAN CORPUSCULAR HGB CONC 32.4 g/dL (33.2-36.2); MEAN PLATELET VOLUME 7.9 fL (7.4-10.4); MONOCYTES % (AUTO) 3 % (2-9); NEUTROPHILS % (AUTO) 94 % (42-75); PLATELET COUNT 245 x10^3/uL (130-400); RED BLOOD COUNT 3.66 x10^6/uL (4.38-5.82); RED CELL DISTRIBUTION WIDTH 13.3 % (9.4-14.8)
[2020-07-26 04:17] LABS: MD NO
[2020-07-26] MEDS ORDERED: AcetaZOLAMIDE INJ 500 MG IVPush SCH (09:00)
[2020-07-26] MEDS: INSULIN GLARGINE 100 UNITS/ML, PEN SQ-INSULIN SCH ×2 (09:03→20:38)
[2020-07-26] MEDS: ASCORBIC ACID 500 MG TABLET PO SCH ×3 (09:04→20:29)
[2020-07-26] MEDS: CHOLECALCIFEROL 1,000 UNIT TABLET PO SCH (09:04)
[2020-07-26] MEDS: ZINC SULFATE 220 MG CAPSULE PO SCH (09:04)
[2020-07-26] MEDS: THIAMINE 100MG TABLET PO SCH (09:05)
[2020-07-26] MEDS: ENOXAPARIN 60 MG/0.6 ML SQ SCH (09:05)
[2020-07-26] MEDS: POLYETHYLENE GLYCOL 17 GM PACKET PO PRN (09:06)
[2020-07-26] MEDS: MELATONIN 5 MG TABLET PO SCH (20:29)
[2020-07-27] MEDS: ACETAMINOPHEN 325 MG TABLET PO PRN (00:28)
[2020-07-27] MEDS: INSULIN LISPRO 100 UNITS/ML, PEN SQ-INSULIN SCH ×4 (04:13→21:00)
[2020-07-27 04:52] LABS: BASOPHILS % (AUTO) 0 % (0-1); EOSINOPHILS % (AUTO) 0 % (1-7); LYMPHOCYTES % (AUTO) 3 % (22-44); MEAN CORPUSCULAR HEMOGLOBIN 30.3 pg (27.5-34.5); MEAN CORPUSCULAR HGB CONC 32.9 g/dL (33.2-36.2); MEAN PLATELET VOLUME 8.2 fL (7.4-10.4); MONOCYTES % (AUTO) 4 % (2-9); NEUTROPHILS % (AUTO) 93 % (42-75); PLATELET COUNT 247 x10^3/uL (130-400); RED BLOOD COUNT 3.35 x10^6/uL (4.38-5.82); RED CELL DISTRIBUTION WIDTH 13.5 % (9.4-14.8)
[2020-07-27 05:01] LABS: ALBUMIN 1.6 g/dL (3.4-5.0); ANION GAP 4 mmol/L (5-15); CALCIUM 8.7 mg/dL (8.5-10.1); CHLORIDE 105 mmol/L (98-107)
[2020-07-27 05:04] LABS: ALANINE AMINOTRANSFERASE 123 U/L (12-78); ALKALINE PHOSPHATASE 286 U/L (45-117); BILIRUBIN,TOTAL 0.9 mg/dL (0.2-1.0); TOTAL PROTEIN 6.1 g/dL (6.4-8.2); TRIGLYCERIDES 84 mg/dL (50-200)
[2020-07-27 05:18] LABS: MD NO
[2020-07-27] MEDS: ENOXAPARIN 60 MG/0.6 ML SQ SCH (08:24)
[2020-07-27] MEDS: ASCORBIC ACID 500 MG TABLET PO SCH ×3 (08:24→22:08)
[2020-07-27] MEDS: THIAMINE 100MG TABLET PO SCH (08:24)
[2020-07-27] MEDS: CHOLECALCIFEROL 1,000 UNIT TABLET PO SCH (08:24)
[2020-07-27] MEDS: ZINC SULFATE 220 MG CAPSULE PO SCH (08:24)
[2020-07-27] MEDS: INSULIN GLARGINE 100 UNITS/ML, PEN SQ-INSULIN SCH ×2 (08:24→21:00)
[2020-07-27] MEDS: FENTANYL PF 1,000 MCG in SODIUM CHLORIDE 0.9% 80 ML IV PRN (20:02)
[2020-07-27] MEDS: MELATONIN 5 MG TABLET PO SCH (22:08)
[2020-07-28] MEDS: INSULIN LISPRO 100 UNITS/ML, PEN SQ-INSULIN SCH ×4 (02:49→21:09)
[2020-07-28] MEDS ORDERED: SODIUM CHLORIDE 0.9% IV PRN (03:00)
[2020-07-28] MEDS ORDERED: FENTANYL IV PRN (03:00)
[2020-07-28] MEDS: FENTANYL PF 2,500 MCG in SODIUM CHLORIDE 0.9% 200 ML IV PRN ×2 (03:28→21:26)
[2020-07-28 04:28] LABS: BASOPHILS % (AUTO) 0 % (0-1); EOSINOPHILS % (AUTO) 1 % (1-7); LYMPHOCYTES % (AUTO) 3 % (22-44); MEAN CORPUSCULAR HEMOGLOBIN 30.2 pg (27.5-34.5); MEAN CORPUSCULAR HGB CONC 32.7 g/dL (33.2-36.2); MEAN PLATELET VOLUME 7.6 fL (7.4-10.4); MONOCYTES % (AUTO) 3 % (2-9); NEUTROPHILS % (AUTO) 93 % (42-75); PLATELET COUNT 278 x10^3/uL (130-400); RED CELL DISTRIBUTION WIDTH 13.5 % (9.4-14.8)
[2020-07-28 04:35] LABS: ALANINE AMINOTRANSFERASE 96 U/L (12-78); ALBUMIN 1.7 g/dL (3.4-5.0); ANION GAP 3 mmol/L (5-15); CALCIUM 8.7 mg/dL (8.5-10.1); CHLORIDE 108 mmol/L (98-107); CREATININE 0.71 mg/dL (0.7-1.3)
[2020-07-28 04:37] LABS: ALKALINE PHOSPHATASE 282 U/L (45-117); BILIRUBIN,TOTAL 0.7 mg/dL (0.2-1.0); TOTAL PROTEIN 6.5 g/dL (6.4-8.2)
[2020-07-28 05:12] LABS: MD SCAN
[2020-07-28] MEDS ORDERED: POTASSIUM CHLORIDE 10% 40 MEQ/30 ML UDC PO ONE (07:30)
[2020-07-28] MEDS: CHOLECALCIFEROL 1,000 UNIT TABLET PO SCH (09:05)
[2020-07-28] MEDS: ENOXAPARIN 60 MG/0.6 ML SQ SCH (09:05)
[2020-07-28] MEDS: ASCORBIC ACID 500 MG TABLET PO SCH (09:05)
[2020-07-28] MEDS: THIAMINE 100MG TABLET PO SCH (09:05)
[2020-07-28] MEDS: ZINC SULFATE 220 MG CAPSULE PO SCH (09:05)
[2020-07-28] MEDS: INSULIN GLARGINE 100 UNITS/ML, PEN SQ-INSULIN SCH ×2 (09:06→21:09)
[2020-07-28] MEDS: FUROSEMIDE 40 MG/4 ML IV SCH ×2 (09:06→17:38)
[2020-07-28] MEDS: OXYcodone IR 5MG TABLET PO PRN (12:44)
[2020-07-28] MEDS: ACETAMINOPHEN 325 MG TABLET PO PRN (12:44)
[2020-07-29] MEDS: INSULIN LISPRO 100 UNITS/ML, PEN SQ-INSULIN SCH ×4 (03:07→20:05)
[2020-07-29 04:56] LABS: BASOPHILS % (AUTO) 0 % (0-1); EOSINOPHILS % (AUTO) 1 % (1-7); LYMPHOCYTES % (AUTO) 3 % (22-44); MEAN CORPUSCULAR HEMOGLOBIN 30.2 pg (27.5-34.5); MEAN CORPUSCULAR HGB CONC 33.1 g/dL (33.2-36.2); MEAN PLATELET VOLUME 8.2 fL (7.4-10.4); MONOCYTES % (AUTO) 3 % (2-9); NEUTROPHILS % (AUTO) 93 % (42-75); PLATELET COUNT 293 x10^3/uL (130-400); RED BLOOD COUNT 3.26 x10^6/uL (4.38-5.82); RED CELL DISTRIBUTION WIDTH 13.6 % (9.4-14.8)
[2020-07-29 05:05] LABS: ALANINE AMINOTRANSFERASE 70 U/L (12-78); ALBUMIN 1.6 g/dL (3.4-5.0); ANION GAP 3 mmol/L (5-15); CALCIUM 8.9 mg/dL (8.5-10.1); CHLORIDE 107 mmol/L (98-107)
[2020-07-29 05:06] LABS: MD NO
[2020-07-29 05:08] LABS: ALKALINE PHOSPHATASE 256 U/L (45-117); BILIRUBIN,TOTAL 0.5 mg/dL (0.2-1.0); CREATININE 0.72 mg/dL (0.7-1.3); TOTAL PROTEIN 6.5 g/dL (6.4-8.2)
[2020-07-29] MEDS: INSULIN GLARGINE 100 UNITS/ML, PEN SQ-INSULIN SCH ×2 (08:00→20:05)
[2020-07-29] MEDS: ENOXAPARIN 60 MG/0.6 ML SQ SCH (08:02)
[2020-07-29] MEDS: FUROSEMIDE 40 MG/4 ML IV SCH (10:43)
[2020-07-29] MEDS: POTASSIUM CHLORIDE 20 MEQ PACKET PO SCH (10:43)
[2020-07-29] MEDS: FENTANYL PF 2,500 MCG in SODIUM CHLORIDE 0.9% 200 ML IV PRN (18:05)
[2020-07-30 03:36] LABS: BASOPHILS % (AUTO) 1 % (0-1); EOSINOPHILS % (AUTO) 0 % (1-7); LYMPHOCYTES % (AUTO) 2 % (22-44); MEAN CORPUSCULAR HEMOGLOBIN 30.3 pg (27.5-34.5); MEAN PLATELET VOLUME 8.2 fL (7.4-10.4); MONOCYTES % (AUTO) 2 % (2-9); NEUTROPHILS % (AUTO) 95 % (42-75); PLATELET COUNT 321 x10^3/uL (130-400); RED BLOOD COUNT 3.06 x10^6/uL (4.38-5.82); RED CELL DISTRIBUTION WIDTH 13.5 % (9.4-14.8)
[2020-07-30 03:39] LABS: MD NO
[2020-07-30 03:50] LABS: CHLORIDE 107 mmol/L (98-107)
[2020-07-30 03:54] LABS: ALANINE AMINOTRANSFERASE 59 U/L (12-78); ALBUMIN 1.6 g/dL (3.4-5.0); ALKALINE PHOSPHATASE 250 U/L (45-117); ANION GAP 4 mmol/L (5-15); BILIRUBIN,TOTAL 0.5 mg/dL (0.2-1.0); CREATININE 0.79 mg/dL (0.7-1.3); TOTAL PROTEIN 6.5 g/dL (6.4-8.2); TRIGLYCERIDES 92 mg/dL (50-200)
[2020-07-30] MEDS: INSULIN LISPRO 100 UNITS/ML, PEN SQ-INSULIN SCH ×4 (04:09→21:00)
[2020-07-30] MEDS: PROPOFOL 100 ML IV PRN (07:02)
[2020-07-30] MEDS: FUROSEMIDE 40 MG/4 ML IV SCH (07:57)
[2020-07-30] MEDS: ENOXAPARIN 60 MG/0.6 ML SQ SCH (07:58)
[2020-07-30] MEDS: INSULIN GLARGINE 100 UNITS/ML, PEN SQ-INSULIN SCH ×2 (07:59→21:24)
[2020-07-30] MEDS: POTASSIUM CHLORIDE 20 MEQ PACKET PO SCH (08:00)
[2020-07-30] MEDS: FENTANYL PF 2,500 MCG in SODIUM CHLORIDE 0.9% 200 ML IV PRN ×2 (08:25→20:24)
[2020-07-30] MEDS: MIDAZOLAM HCL 50 MG in SODIUM CHLORIDE 0.9% 40 ML IV PRN ×2 (09:39→20:23)
[2020-07-30] MEDS: NOREPINEPHRINE 8 MG in SODIUM CHLORIDE 0.9% 242 ML IV PRN (11:42)
[2020-07-30] MEDS: ACETAMINOPHEN 325 MG TABLET PO PRN (12:02)
[2020-07-30] MEDS ORDERED: SUCCINYLCHOLINE 20 MG/ML, 10ML ONE (20:01)
[2020-07-30] MEDS ORDERED: PROPOFOL 10 MG/ML, 100ML IV ONE (20:01)
[2020-07-30] MEDS ORDERED: ETOMIDATE 20 MG/10 ML ONE (20:01)
[2020-07-31] MEDS: INSULIN LISPRO 100 UNITS/ML, PEN SQ-INSULIN SCH ×4 (03:00→20:50)
[2020-07-31] MEDS: MIDAZOLAM HCL 50 MG in SODIUM CHLORIDE 0.9% 40 ML IV PRN ×2 (03:49→12:28)
[2020-07-31] MEDS: NOREPINEPHRINE 8 MG in SODIUM CHLORIDE 0.9% 242 ML IV PRN (04:03)
[2020-07-31 05:12] LABS: BASOPHILS % (AUTO) 1 % (0-1); EOSINOPHILS % (AUTO) 2 % (1-7); LYMPHOCYTES % (AUTO) 4 % (22-44); MEAN CORPUSCULAR HGB CONC 33.6 g/dL (33.2-36.2); MEAN PLATELET VOLUME 8.3 fL (7.4-10.4); MONOCYTES % (AUTO) 3 % (2-9); NEUTROPHILS % (AUTO) 91 % (42-75); PLATELET COUNT 375 x10^3/uL (130-400); RED BLOOD COUNT 3.05 x10^6/uL (4.38-5.82); RED CELL DISTRIBUTION WIDTH 13.8 % (9.4-14.8)
[2020-07-31 05:13] LABS: ANION GAP 3 mmol/L (5-15); CALCIUM 8.9 mg/dL (8.5-10.1); CHLORIDE 111 mmol/L (98-107)
[2020-07-31 05:14] LABS: CREATININE 0.75 mg/dL (0.7-1.3)
[2020-07-31 05:27] LABS: MD NO
[2020-07-31 06:56] LABS: BILIRUBIN, DIRECT 0.3 mg/dL (0.1-0.2)
[2020-07-31 06:57] LABS: BILIRUBIN,INDIRECT 0.2 mg/dL (0.0-2.0); BILIRUBIN,TOTAL 0.5 mg/dL (0.2-1.0)
[2020-07-31] MEDS: POTASSIUM CHLORIDE 20 MEQ PACKET PO SCH (09:49)
[2020-07-31] MEDS: FUROSEMIDE 40 MG/4 ML IV SCH ×2 (09:49→18:02)
[2020-07-31] MEDS: ENOXAPARIN 60 MG/0.6 ML SQ SCH (09:49)
[2020-07-31] MEDS: QUETIAPINE 25MG TABLET PO/NG SCH ×2 (09:49→20:18)
[2020-07-31] MEDS: INSULIN GLARGINE 100 UNITS/ML, PEN SQ-INSULIN SCH ×2 (09:51→20:51)
[2020-07-31] MEDS: FENTANYL PF 2,500 MCG in SODIUM CHLORIDE 0.9% 200 ML IV PRN (12:29)
[2020-07-31] MEDS: ACETAMINOPHEN 325 MG TABLET PO PRN (18:02)
[2020-07-31] MEDS: MIDODRINE 5 MG TABLET PO SCH ×2 (18:02→23:57)
[2020-08-01] MEDS: MIDAZOLAM HCL 50 MG in SODIUM CHLORIDE 0.9% 40 ML IV PRN ×2 (00:24→10:30)
[2020-08-01] MEDS: NOREPINEPHRINE 8 MG in SODIUM CHLORIDE 0.9% 242 ML IV PRN (00:24)
[2020-08-01] MEDS: INSULIN LISPRO 100 UNITS/ML, PEN SQ-INSULIN SCH ×4 (03:05→21:08)
[2020-08-01 04:31] LABS: BASOPHILS % (AUTO) 1 % (0-1); EOSINOPHILS % (AUTO) 3 % (1-7); LYMPHOCYTES % (AUTO) 4 % (22-44); MEAN CORPUSCULAR HEMOGLOBIN 30.9 pg (27.5-34.5); MEAN CORPUSCULAR HGB CONC 33.4 g/dL (33.2-36.2); MEAN PLATELET VOLUME 8.7 fL (7.4-10.4); MONOCYTES % (AUTO) 2 % (2-9); NEUTROPHILS % (AUTO) 90 % (42-75); PLATELET COUNT 344 x10^3/uL (130-400); RED BLOOD COUNT 2.78 x10^6/uL (4.38-5.82); RED CELL DISTRIBUTION WIDTH 13.8 % (9.4-14.8)
[2020-08-01 04:40] LABS: MD NO
[2020-08-01 04:48] LABS: ANION GAP 2 mmol/L (5-15); CALCIUM 8.3 mg/dL (8.5-10.1); CHLORIDE 111 mmol/L (98-107)
[2020-08-01 04:49] LABS: CREATININE 0.81 mg/dL (0.7-1.3)
[2020-08-01] MEDS: POLYETHYLENE GLYCOL 17 GM PACKET PO PRN (05:12)
[2020-08-01] MEDS: POTASSIUM CHLORIDE 20 MEQ PACKET PO SCH (08:39)
[2020-08-01] MEDS: FUROSEMIDE 40 MG/4 ML IV SCH (08:40)
[2020-08-01] MEDS: MIDODRINE 5 MG TABLET PO SCH ×2 (08:41→15:59)
[2020-08-01] MEDS: QUETIAPINE 25MG TABLET PO/NG SCH ×2 (08:41→20:59)
[2020-08-01] MEDS: ENOXAPARIN 60 MG/0.6 ML SQ SCH (08:42)
[2020-08-01] MEDS: INSULIN GLARGINE 100 UNITS/ML, PEN SQ-INSULIN SCH ×2 (08:43→21:08)
[2020-08-01] MEDS: LACTULOSE 20 GM/30 ML UDC PO SCH ×2 (10:27→21:00)
[2020-08-01] MEDS ORDERED: VECURONIUM 10 MG ONE (10:42)
[2020-08-01] MEDS ORDERED: VECURONIUM 10 MG IVPush ONE (11:00)
[2020-08-01] MEDS ORDERED: ACETAMINOPHEN 650 MG/20.3 ML UDC ONE (11:32)
[2020-08-01] MEDS: FENTANYL PF 2,500 MCG in SODIUM CHLORIDE 0.9% 200 ML IV PRN ×2 (11:42→23:55)
[2020-08-02] MEDS: MIDODRINE 5 MG TABLET PO SCH ×4 (00:19→20:16)
[2020-08-02] MEDS: ACETAMINOPHEN 325 MG TABLET PO PRN ×3 (00:19→13:23)
[2020-08-02] MEDS: INSULIN LISPRO 100 UNITS/ML, PEN SQ-INSULIN SCH ×4 (03:09→20:38)
[2020-08-02 04:31] LABS: ANION GAP 1 mmol/L (5-15); CALCIUM 8.5 mg/dL (8.5-10.1); CHLORIDE 108 mmol/L (98-107)
[2020-08-02 04:32] LABS: TRIGLYCERIDES 106 mg/dL (50-200)
[2020-08-02 04:35] LABS: BASOPHILS % (AUTO) 1 % (0-1); EOSINOPHILS % (AUTO) 4 % (1-7); LYMPHOCYTES % (AUTO) 3 % (22-44); MEAN CORPUSCULAR HEMOGLOBIN 30.9 pg (27.5-34.5); MEAN CORPUSCULAR HGB CONC 33.1 g/dL (33.2-36.2); MEAN PLATELET VOLUME 8.7 fL (7.4-10.4); MONOCYTES % (AUTO) 2 % (2-9); NEUTROPHILS % (AUTO) 91 % (42-75); PLATELET COUNT 398 x10^3/uL (130-400); RED BLOOD COUNT 2.91 x10^6/uL (4.38-5.82); RED CELL DISTRIBUTION WIDTH 14.2 % (9.4-14.8)
[2020-08-02] MEDS: MIDAZOLAM HCL 50 MG in SODIUM CHLORIDE 0.9% 40 ML IV PRN ×2 (05:21→15:03)
[2020-08-02 05:59] LABS: MD SCAN
[2020-08-02] MEDS: ENOXAPARIN 60 MG/0.6 ML SQ SCH (08:38)
[2020-08-02] MEDS: POTASSIUM CHLORIDE 20 MEQ PACKET PO SCH (08:38)
[2020-08-02] MEDS: QUETIAPINE 25MG TABLET PO/NG SCH ×2 (08:39→20:15)
[2020-08-02] MEDS: LACTULOSE 20 GM/30 ML UDC PO SCH ×2 (08:41→20:14)
[2020-08-02] MEDS: INSULIN GLARGINE 100 UNITS/ML, PEN SQ-INSULIN SCH ×2 (08:43→20:40)
[2020-08-02] MEDS ORDERED: BISACODYL 10 MG SUPP PR ONE (10:30)
[2020-08-02] MEDS: FENTANYL PF 2,500 MCG in SODIUM CHLORIDE 0.9% 200 ML IV PRN (17:00)
[2020-08-02] MEDS: PANTOPRAZOLE 40 MG IV IVPush SCH (17:57)
[2020-08-02 18:15] LABS: MEAN CORPUSCULAR HEMOGLOBIN 29.7 pg (27.5-34.5); MEAN CORPUSCULAR HGB CONC 32.1 g/dL (33.2-36.2); MEAN PLATELET VOLUME 8.9 fL (7.4-10.4); PLATELET COUNT 479 x10^3/uL (130-400); RED BLOOD COUNT 3.15 x10^6/uL (4.38-5.82); RED CELL DISTRIBUTION WIDTH 14.5 % (9.4-14.8)
[2020-08-02 18:36] LABS: MD YES
[2020-08-02 18:42] LABS: BAND#(MANUAL) 2.93 x10^3/uL; BANDS%(MANUAL) 22 % (0-7); LYMPH#(MANUAL) 0.13 x10^3/uL (1-3.4); LYMPHS% (MANUAL) 1 % (22-44); METAMYELOCYTES# (MANUAL) 0.53 x10^3/uL (0-0); METAMYELOCYTES% (MANUAL) 4 % (0-1); MYELOCYTES# (MANUAL) 0.13 x10^3/uL (0-0); MYELOCYTES% (MANUAL) 1 % (0-0); SEG#(MANUAL) 9.58 x10^3/uL (1.8-6.8); SEGS% (MANUAL) 72 % (42-75)
[2020-08-02 18:43] LABS: ANISOCYTOSIS 1+; OVALOCYTES 1+; POLYCHROMASIA 1+
[2020-08-02 18:45] LABS: <PLATELET ESTIMATE> ADEQUATE; LARGE PLATELETS 1+
[2020-08-03 00:23] LABS: INTERNATIONAL NORMALIZED RATIO 1.03 (0.93-1.1); PROTHROMBIN TIME 10.9 Seconds (9.6-11.5)
[2020-08-03] MEDS: INSULIN LISPRO 100 UNITS/ML, PEN SQ-INSULIN SCH ×4 (03:00→20:58)
[2020-08-03] MEDS: NOREPINEPHRINE 8 MG in SODIUM CHLORIDE 0.9% 242 ML IV PRN (04:06)
[2020-08-03] MEDS: PANTOPRAZOLE 40 MG IV IVPush SCH ×2 (04:32→16:32)
[2020-08-03 04:45] LABS: ANION GAP 2 mmol/L (5-15); CALCIUM 9.1 mg/dL (8.5-10.1); CHLORIDE 110 mmol/L (98-107); CREATININE 0.95 mg/dL (0.7-1.3)
[2020-08-03 04:46] LABS: MEAN CORPUSCULAR HEMOGLOBIN 29.8 pg (27.5-34.5); MEAN CORPUSCULAR HGB CONC 31.9 g/dL (33.2-36.2); MEAN PLATELET VOLUME 8.7 fL (7.4-10.4); PLATELET COUNT 487 x10^3/uL (130-400); RED BLOOD COUNT 2.93 x10^6/uL (4.38-5.82); RED CELL DISTRIBUTION WIDTH 14.4 % (9.4-14.8)
[2020-08-03 06:41] LABS: MD YES
[2020-08-03 06:43] LABS: <PLATELET ESTIMATE> INCREASED; ANISOCYTOSIS 1+; BAND#(MANUAL) 1.05 x10^3/uL; BANDS%(MANUAL) 9 % (0-7); EOS#(MANUAL) 0.23 x10^3/uL (0.0-0.4); EOS% (MANUAL) 2 % (1-7); LARGE PLATELETS 1+; LYMPH#(MANUAL) 0.35 x10^3/uL (1-3.4); LYMPHS% (MANUAL) 3 % (22-44); METAMYELOCYTES# (MANUAL) 0.12 x10^3/uL (0-0); METAMYELOCYTES% (MANUAL) 1 % (0-1); POLYCHROMASIA 1+; SEG#(MANUAL) 9.95 x10^3/uL (1.8-6.8); SEGS% (MANUAL) 85 % (42-75)
[2020-08-03] MEDS: QUETIAPINE 25MG TABLET PO/NG SCH ×2 (09:23→20:57)
[2020-08-03] MEDS: MIDODRINE 5 MG TABLET PO SCH ×3 (09:23→23:42)
[2020-08-03] MEDS: LACTULOSE 20 GM/30 ML UDC PO SCH ×2 (09:24→20:57)
[2020-08-03] MEDS: INSULIN GLARGINE 100 UNITS/ML, PEN SQ-INSULIN SCH ×2 (09:25→20:59)
[2020-08-03] MEDS: MIDAZOLAM HCL 50 MG in SODIUM CHLORIDE 0.9% 40 ML IV PRN (09:38)
[2020-08-03] MEDS: ACETAMINOPHEN 325 MG TABLET PO PRN (14:07)
[2020-08-03] MEDS: FENTANYL PF 2,500 MCG in SODIUM CHLORIDE 0.9% 200 ML IV PRN (23:46)
[2020-08-04] MEDS: INSULIN LISPRO 100 UNITS/ML, PEN SQ-INSULIN SCH ×4 (04:00→21:27)
[2020-08-04 04:46] LABS: MEAN CORPUSCULAR HEMOGLOBIN 30.2 pg (27.5-34.5); MEAN CORPUSCULAR HGB CONC 32.8 g/dL (33.2-36.2); MEAN PLATELET VOLUME 8.8 fL (7.4-10.4); PLATELET COUNT 536 x10^3/uL (130-400); RED CELL DISTRIBUTION WIDTH 14.6 % (9.4-14.8)
[2020-08-04 04:49] LABS: ANION GAP 2 mmol/L (5-15); CALCIUM 8.9 mg/dL (8.5-10.1); CHLORIDE 113 mmol/L (98-107); CREATININE 0.85 mg/dL (0.7-1.3)
[2020-08-04] MEDS: PANTOPRAZOLE 40 MG IV IVPush SCH ×2 (05:00→16:12)
[2020-08-04 05:52] LABS: MD YES
[2020-08-04 05:54] LABS: <PLATELET ESTIMATE> INCREASED; ANISOCYTOSIS 1+; BAND#(MANUAL) 0.39 x10^3/uL; BANDS%(MANUAL) 3 % (0-7); EOS#(MANUAL) 0.13 x10^3/uL (0.0-0.4); EOS% (MANUAL) 1 % (1-7); LYMPH#(MANUAL) 0.79 x10^3/uL (1-3.4); LYMPHS% (MANUAL) 6 % (22-44); MYELOCYTES# (MANUAL) 0.13 x10^3/uL (0-0); MYELOCYTES% (MANUAL) 1 % (0-0); POLYCHROMASIA 1+; SEG#(MANUAL) 11.66 x10^3/uL (1.8-6.8); SEGS% (MANUAL) 89 % (42-75)
[2020-08-04 05:55] LABS: LARGE PLATELETS 1+
[2020-08-04] MEDS: NOREPINEPHRINE 8 MG in SODIUM CHLORIDE 0.9% 242 ML IV PRN (08:33)
[2020-08-04] MEDS ORDERED: LACTULOSE 20 GM/30 ML UDC PO PRN (09:30)
[2020-08-04] MEDS ORDERED: ENOXAPARIN 40 MG/0.4 ML SQ SCH (09:30)
[2020-08-04] MEDS: MIDODRINE 5 MG TABLET PO SCH ×3 (09:46→23:52)
[2020-08-04] MEDS: INSULIN GLARGINE 100 UNITS/ML, PEN SQ-INSULIN SCH ×2 (10:14→21:27)
[2020-08-04] MEDS ORDERED: QUETIAPINE 25MG TABLET ONE (11:14)
[2020-08-04] MEDS: QUETIAPINE 25MG TABLET PO/NG SCH ×2 (16:11→21:26)
[2020-08-04] MEDS: FENTANYL PF 2,500 MCG in SODIUM CHLORIDE 0.9% 200 ML IV PRN (17:05)
[2020-08-04 18:36] LABS: MICROSCOPIC INDICATED
[2020-08-04] MEDS: MIDAZOLAM HCL 50 MG in SODIUM CHLORIDE 0.9% 40 ML IV PRN (21:18)
[2020-08-04] MEDS: ACETAMINOPHEN 325 MG TABLET PO PRN (21:50)
[2020-08-05] MEDS: INSULIN LISPRO 100 UNITS/ML, PEN SQ-INSULIN SCH ×3 (03:36→14:43)
[2020-08-05] MEDS: ACETAMINOPHEN 325 MG TABLET PO PRN ×2 (03:45→13:17)
[2020-08-05 04:07] LABS: BASOPHILS % (AUTO) 0 % (0-1); EOSINOPHILS % (AUTO) 1 % (1-7); LYMPHOCYTES % (AUTO) 3 % (22-44); MEAN CORPUSCULAR HGB CONC 32.4 g/dL (33.2-36.2); MEAN PLATELET VOLUME 8.4 fL (7.4-10.4); MONOCYTES % (AUTO) 2 % (2-9); NEUTROPHILS % (AUTO) 94 % (42-75); PLATELET COUNT 577 x10^3/uL (130-400); RED BLOOD COUNT 2.44 x10^6/uL (4.38-5.82); RED CELL DISTRIBUTION WIDTH 14.3 % (9.4-14.8)
[2020-08-05 04:13] LABS: MD NO
[2020-08-05 04:14] LABS: CHLORIDE 113 mmol/L (98-107)
[2020-08-05 04:25] LABS: ANION GAP 1 mmol/L (5-15); BILIRUBIN,TOTAL 0.6 mg/dL (0.2-1.0); CALCIUM 8.3 mg/dL (8.5-10.1); CREATININE 0.85 mg/dL (0.7-1.3); TRIGLYCERIDES 120 mg/dL (50-200)
[2020-08-05] MEDS: PANTOPRAZOLE 40 MG IV IVPush SCH (05:31)
[2020-08-05] MEDS ORDERED: MEROPENEM 1 GM in SODIUM CHLORIDE 0.9% 100 ML IV SCH (07:00)
[2020-08-05] MEDS: QUETIAPINE 25MG TABLET PO/NG SCH (10:04)
[2020-08-05] MEDS: FENTANYL PF 2,500 MCG in SODIUM CHLORIDE 0.9% 200 ML IV PRN (10:05)
[2020-08-05] MEDS: MIDODRINE 5 MG TABLET PO SCH (10:05)
[2020-08-05] MEDS: MIDAZOLAM HCL 50 MG in SODIUM CHLORIDE 0.9% 40 ML IV PRN (10:06)
[2020-08-05] MEDS: INSULIN GLARGINE 100 UNITS/ML, PEN SQ-INSULIN SCH (10:44)
[2020-08-05] MEDS ORDERED: MORPHINE SULFATE 4 MG/ML, 1ML IV ONE (15:00)
[2020-08-05] MEDS ORDERED: LORazepam 2 MG/ML, 1ML IV ONE (15:00)
[2020-08-05] MEDS ORDERED: MORPHINE SULFATE 4 MG/ML, 1ML IVPush PRN (15:00)
[2020-08-05] MEDS ORDERED: LORazepam 2 MG/ML, 1ML IVPush PRN (15:00)
== END 2020-08-06 05:22 | disposition expired | DRG 870 ==
LOC: ED 07-16 00:23 → EDIP 07-16 00:45 → CCU 07-17 15:50 → ICU 07-21 10:35
PROVIDERS: ADMIT Internal Medicine; ATTEND Hospitalist
PROC: 5A09557 Assistance with Respiratory Ventilation, Greater than 96 Consecutive Hours, Continuous Positive Airway Pressure (ICD-10-PCS; 2020-07-16)
PROC: XW033E5 Introduction of Remdesivir Anti-infective into Peripheral Vein, Percutaneous Approach, New Technology Group 5 (ICD-10-PCS; 2020-07-16)
PROC: 5A1955Z Respiratory Ventilation, Greater than 96 Consecutive Hours (ICD-10-PCS; principal; 2020-07-21)
PROC: 0BH17EZ Insertion of Endotracheal Airway into Trachea, Via Natural or Artificial Opening (ICD-10-PCS; 2020-07-21)
PROC: 02HV33Z Insertion of Infusion Device into Superior Vena Cava, Percutaneous Approach (ICD-10-PCS; 2020-07-22)
PROC: B548ZZA Ultrasonography of Superior Vena Cava, Guidance (ICD-10-PCS; 2020-07-22)
PROC: 0T9B70Z Drainage of Bladder with Drainage Device, Via Natural or Artificial Opening (ICD-10-PCS; 2020-08-04)
DX: A41.89 Other specified sepsis (principal); J12.89 Other viral pneumonia; J96.01 Acute respiratory failure with hypoxia; N17.0 Acute kidney failure with tubular necrosis; U07.1 COVID-19; E87.0 Hyperosmolality and hypernatremia; E87.2 Acidosis; G93.40 Encephalopathy, unspecified; I13.0 Hypertensive heart and chronic kidney disease with heart failure and stage 1 through stage 4 chronic kidney disease, or unspecified chronic kidney disease; I50.32 Chronic diastolic (congestive) heart failure; K92.2 Gastrointestinal hemorrhage, unspecified; T79.7XXA Traumatic subcutaneous emphysema, initial encounter; I46.9 Cardiac arrest, cause unspecified; Z66 Do not resuscitate; D64.9 Anemia, unspecified; E11.22 Type 2 diabetes mellitus with diabetic chronic kidney disease; E78.5 Hyperlipidemia, unspecified; E88.09 Other disorders of plasma-protein metabolism, not elsewhere classified; J45.909 Unspecified asthma, uncomplicated; N18.9 Chronic kidney disease, unspecified; N32.0 Bladder-neck obstruction; N40.1 Benign prostatic hyperplasia with lower urinary tract symptoms; R33.8 Other retention of urine; R74.01 Elevation of levels of liver transaminase levels; T38.0X5A Adverse effect of glucocorticoids and synthetic analogues, initial encounter; X58.XXXA Exposure to other specified factors, initial encounter; Y93.89 Activity, other specified; Y92.89 Other specified places as the place of occurrence of the external cause; Y99.8 Other external cause status; Z79.899 Other long term (current) drug therapy
CPT/HCPCS: 36415; 36573; 36600; 71045; 76770; 80048; 80053; 80061; 81001; 82247; 82248; 82306; 82436; 82533; 82570; 82728; 82803; 82962; 83036; 83605; 83615; 83735; 83970; 84100; 84133; 84145; 84300; 84443; 84478; 84484; 85014; 85018; 85025; 85049; 85379; 85384; 85610; 85730; 86140; 87040; 87070; 87081; 87205; 87635; 93005; 93306; 94002; 94003; 94660; 96365; 96366; 99285; G0378; J0456; J0696; J1100; J1650; J1940; J2185; J2250; J2704; J3010; J7030; P9047; C1751; C9113; J0330; J1815; J2060; J2270; J7040; J7050; U0003